=== PATIENT | female | born 2000 | race Hispanic/Latino ===

== ENCOUNTER 2024-01-20 16:10 | Emergency (ER) | payer SELFPAY ==
[~2024-01-20] VITALS: Ht 175.3 cm; Wt 59.9 kg
[2024-01-20] MEDS: 0.9%NACL 1000ML 1,000 ML IV ONE (16:40)
[2024-01-20 16:41] LABS: BASOPHILS # (AUTO) 0.01 K/uL (0.00-0.20); BASOPHILS % (AUTO) 0.3 % (0.0-5.0); EOSINOPHILS # (AUTO) 0.03 K/uL (0.00-0.70); HEMATOCRIT 40.2 % (36-48); IMMATURE GRANULOCYTE ABSOLUTE 0.02 K/uL (0-1); LYMPHOCYTES # (AUTO) 0.5 K/uL (1.0-4.8); LYMPHOCYTES % (AUTO) 17.7 % (21.0-51.0); MEAN CORPUSCULAR HEMOGLOBIN 28.9 pg (27.0-33.0); MEAN CORPUSCULAR HGB CONC 33.6 g/dL (32.0-36.0); MEAN CORPUSCULAR VOLUME 86.1 fL (79-99); MONOCYTES # (AUTO) 0.2 K/uL (0.1-1.0); MONOCYTES % (AUTO) 7.5 % (3.0-13.0); NEUTROPHILS # (AUTO) 2.1 K/uL (1.8-7.7); NEUTROPHILS % (AUTO) 72.8 % (40.0-77.0); PLATELET COUNT (AUTO) 107 K/uL (130-400); RED BLOOD CELL COUNT(AUTO) 4.67 MIL/uL (4.00-5.50); RED CELL DISTRIBUTION WIDTH 12.2 % (11.0-15.5); WHITE BLOOD COUNT (AUTO) 2.9 K/uL (4.8-10.8)
[2024-01-20] MEDS: acetaMINOPHEN 500 MG TABLET PO ONE ×2 (16:41→20:48)
[2024-01-20 16:50] LABS: APPEARANCE,URINE CLEAR (CLEAR); BILIRUBIN,URINE NEGATIVE (NEGATIVE); COLOR,URINE COLORLESS (YELLOW); GLUCOSE, URINE (UA) NEGATIVE (NEGATIVE); KETONES,URINE NEGATIVE (NEGATIVE); LEUKOCYTE ESTERASE ,URINE NEGATIVE Leu/uL (NEGATIVE); NITRATE,URINE NEGATIVE (NEGATIVE); OCCULT BLOOD,URINE NEGATIVE (NEGATIVE); PH,URINE 6.5 (5.0-8.0); PROTEIN,URINE NEGATIVE (NEGATIVE); UROBILINOGEN,URINE 0.2 mg/dL (0.2-1.0)
[2024-01-20 16:51] LABS: POTASSIUM 3.2 mmol/L (3.5-5.1)
[2024-01-20 16:54] LABS: ADD UA MICROSCOPIC NO
[2024-01-20] MEDS: ZOSYN 3.375GM +NS 50ML IV ONE (17:09)
[2024-01-20 17:36] LABS: BAND NEUTROPHILS % (MANUAL) 15 % (0-2); EOSINOPHILS % (MANUAL) 1 % (1-6); LYMPHOCYTES % (MANUAL) 16 % (22-44); MONOCYTES % (MANUAL) 3 % (2-9); SEGMENTED NEUTROPHILS % 65 % (40-70); TOTAL CELLS COUNTED 100
[2024-01-20 17:37] LABS: MAN.DIFF COMMENT-IMPRESSION MANUAL DIFFERENTIAL; PLATELET MORPHOLOGY COMMENT ADEQUATE; WBC MORPHOLOGY CONSISTENT W/DIFF
[2024-01-20 17:57] LABS: HCG,QUALITATIVE URINE NEGATIVE (NEGATIVE)
[2024-01-20 18:01] LABS: RAPID GROUP A STREP negative (NEGATIVE)
[2024-01-20 18:04] LABS: AMPHET/METH SCREEN,URINE NEGATIVE (NEGATIVE); BARBITURATE SCREEN, URINE NEGATIVE (NEGATIVE); BENZODIAZEPINES SCREEN,URINE NEGATIVE (NEGATIVE); CANNABINOID SCREEN,URINE NEGATIVE (NEGATIVE); COCAINE SCREEN,URINE NEGATIVE (NEGATIVE); OPIATE SCREEN,URINE NEGATIVE (NEGATIVE); PHENCYCLIDINE SCREEN,URINE NEGATIVE (NEGATIVE)
[2024-01-20 18:06] LABS: INFLUENZA TYPE A Negative For Type A (NEGATIVE); INFLUENZA TYPE B Negative For Type B (NEGATIVE)
[2024-01-20 18:07] LABS: COVID19 (SARS ANTIGEN RAPID) PRESUMPTIVE NEGATIVE (NEGATIVE)
[2024-01-20 18:09] VITALS: TEMP 99
[2024-01-20] MEDS: [UNRECOGNIZED DRUG - OTHER] IV ONE (18:09)
[2024-01-20] MEDS: doCUSate SODIUM 100 MG CAP PO ONE (19:01)
[2024-01-20] MEDS: ondanSETRON 4MG INJ IVP ONE (19:01)
[2024-01-20 19:46] VITALS: BP 131/58; PULSE 82; RESP 16; TEMP 98.3; O2SAT 98
[2024-01-20] MEDS: CIPROFLOXACIN HCL/DEXAMETH 7.5 ML DROPS.SUSP OTIC SCH (20:49)
[2024-01-20] MEDS: KETOROLAC OPTH 0.5% OP ONE (20:49)
[2024-01-20] MEDS: fluTICasone proPIONate 50MCG/SPRAY 16 GM BOTTLE EN SCH (20:55)
[2024-01-20] MEDS ORDERED: CIPRODEX AS (21:13)
== END 2024-01-20 21:34 | disposition home or self-care (01) ==
LOC: EDH 16:10
DX: H66.92 Otitis media, unspecified, left ear (principal); I95.9 Hypotension, unspecified; R11.2 Nausea with vomiting, unspecified; Z20.822 Contact with and (suspected) exposure to COVID-19
CPT/HCPCS: 99285; 96365; 96361; 71045; 96375; 87426; 82550; 84484; 80048; 80305; 85025; 87040; 87086; 87880; 87804 ×2; 83605; 81025; 36415; 93005; 81003; J7030 ×2; J2405; J2543